=== PATIENT | female | born 1950 | race Caucasian/White ===

== ENCOUNTER 2023-10-25 15:33 | Outpatient (CLI) | payer MEDICARE | END 2023-10-25 15:34 | disposition home or self-care (01) | LOC: CSHCP 15:33 | PROVIDERS: ATTEND Internal Medicine Critical Care Medicine | DX: J41.1 Mucopurulent chronic bronchitis (principal); J98.4 Other disorders of lung | CPT/HCPCS: 94060; 94726; 94729; 94760 ==